=== PATIENT | female | born 1990 | race Asian ===

== ENCOUNTER → 2018-09-21 | Outpatient (CLI) | payer OTHER | LOC: MC.RAD 08:54 | DX: R22.31 Localized swelling, mass and lump, right upper limb (principal) ==

== ENCOUNTER 2020-12-04 09:28 | Outpatient (CLI) | payer OTHER ==
[~2020-12-04] VITALS: Ht 144.8 cm; Wt 52.5 kg
[2020-12-04 10:00] VITALS: BP 119/73; PULSE 68; TEMP 98.5
[2020-12-04] MEDS ORDERED: PROFERRIN ES12 MG PO (10:16)
[2020-12-04] MEDS ORDERED: PRENATAL TABLET PO (10:16)
[2020-12-04] MEDS ORDERED: ZYRTEC 10MG10 MG PO (10:16)
[2020-12-04] MEDS ORDERED: OSCAL 500 TAB500 MG (10:17)
[2020-12-04 10:35] VITALS: BP 112/69; PULSE 67
--- NOTE | 2020-12-04 10:37 | NUR ---
0940 PT AMBULATORY TO LR3 WITH SPOUSE. CLEAN GOWN. FHR/TOCO APPLIED. PT COMES IN FOR COMPLAINTS OF VAGINAL BLEEDING/DECREASED MOVEMENT. PT DENIES ANY REGULAR CONTRACTIONS OR LEAKING OF FLUID. PLAN OF CARE DISCUSSED. SVE PER SHANNON JOHNS 0-1/THICK/HIGH. No blood noted on glove. Pt reports feeling movement and states that vaginal bleeding was spotting/minimal in mucousy discharge. Dr. Zamudio updated. Orders received.
--- NOTE | 2020-12-04 10:49 | NUR ---
1045 PT OFF MONITORS. GIVEN DISCHARGE INSTRUCTIONS. AMBULATORY OFF UNIT WITH SPOUSE
== END 2020-12-04 10:45 | disposition home or self-care (01) ==
LOC: LDRO 09:28
DX: O36.8130 Decreased fetal movements, third trimester, not applicable or unspecified (principal); O26.853 Spotting complicating pregnancy, third trimester; Z3A.35 35 weeks gestation of pregnancy

== ENCOUNTER 2021-01-10 16:34 | Inpatient (IN) | payer OTHER ==
[~2021-01-10] VITALS: Ht 144.8 cm; Wt 56.8 kg
[2021-01-10] VITALS (23 sets, daily range): BP systolic 106–153; BP diastolic 65–91; PULSE 55–86; TEMP 97.2–98.7
[~2021-01-10 16:34] MED LIST: OSCAL 500 TAB500 MG; PRENATAL TABLET PO; PROFERRIN ES12 MG PO; ZYRTEC 10MG10 MG PO
--- NOTE | 2021-01-10 16:40 | NUR ---
1640-G3L0 40.3 GBS neg patient of Dr. Ferrer' Ambulatory to LR 3 with complaint of SROM at 1600. Denies regular contractions but does report off and on contractions "lately." SVE by NAT Parker /3, Amnitest +, clear fluid noted. Assessment complete. 1647-Dr. Ferrer notified. Orders to admit patient. Consents reviewed and signed. IV to left wrist. Blood collected and and sent to lab per orders. Updated on plan of care. 1729-Pitocin started per MD orders. 1809-Reported Off to NAT Feliz.
[2021-01-10 17:03] LABS: BASO % 0.4 % (0.0-2.0); EOS # 0.1 K/mm3 (0.0-0.7); GRAN # 3.1 K/mm3 (1.4-6.5); GRAN % 63.2 % (42.2-75.2); HEMATOCRIT 34.3 % (37.0-47.0); HEMOGLOBIN 11.6 g/dl (12.5-16.0); LYMPH # 1.2 K/mm3 (1.2-3.4); LYMPH % 24.1 % (20.0-51.0); MEAN CELL VOLUME 90 fl (80.0-100.0); MEAN CORPUSCULAR HEMOGLOBIN 30 pg (27.0-31.0); MEAN CORPUSCULAR HGB CONC 34 g/dl (33.0-37.0); MEAN PLATELET VOLUME 12.2 fl (7.4-10.4); MONO # 0.5 K/mm3 (0.1-0.6); MONO % 9.3 % (1.7-9.3); PLATELET COUNT 127 K/mm3 (130-400); RED BLOOD COUNT 3.82 M/mm3 (4.10-5.30); REDCELL DISTRIBUTION WIDTH-CV 13.2 % (11.5-14.5)
[2021-01-11] VITALS (40 sets, daily range): BP systolic 103–160; BP diastolic 59–98; PULSE 55–120; TEMP 97.7–99.4
--- NOTE | 2021-01-11 05:00 | NUR ---
0500- THIS RN TO BEDSIDE FOR SVE CHECK. PATIENT COMPLETE. DISCUSSED PUSHING AND PLAN OF CARE FOR THIS STAGE OF LABOR WITH PATIENT. SHE VERBALIZED UNDERSTANDING. NOTIFIED CHARGE OF STARTING TO PREP FOR PUSHING. SPENCE DUMPED AT THIS TIME. 0513- FIRST PUSH. THIS RN REMAINS AT BEDSIDE DURING THIS TIME AND CONTINUES PUSHING WITH PATIENT. 0530- SPENCE REMOVED. URINE OUTPUT DOCUMENTED. THIS RN REMAINS AT BEDSIDE PUSHING WITH PATIENT. 0610- E.FELTON, RN TO BEDSIDE TO TAKE OVER CARE OF PATIENT. REPORT GIVEN DURING THIS TIME. PATIENT CONTINUES PUSHING WITH THIS RN WHEN CONTRACTIONS HAPPEN. 0615- E. EKART TAKES OVER PUSHING WITH PATIENT. 0620- THIS RN CALLS PROVIDER WITH UPDATES, SEE PHYSICIAN NOTIFICATION.
--- NOTE | 2021-01-11 06:10 | NUR ---
0610-Recieved bedside shift report from NAT Feliz. Patient pusing with good effort with contractioins. Mild amount of vaginal bleeing noted on bed pad with a small trickle during pushing efforts. Encouarged patient. Moves vertex well. Previous nurse to call MD and update that patient has begun pushing since 512. 0630-Patient moving vertex well and vaginal bleeding continuing. Notified MD of exam and requested to unit. 0645-Dr. Ferrer on unit. Set up for delivery. 0650-Patient pushes with MD with good effort.
[2021-01-11 10:12] LABS: BASO % 0.2 % (0.0-2.0); EOS % 0.1 % (0-4.0); GRAN # 11.3 K/mm3 (1.4-6.5); GRAN % 87.1 % (42.2-75.2); HEMOGLOBIN 12.1 g/dl (12.5-16.0); LYMPH # 0.7 K/mm3 (1.2-3.4); LYMPH % 5.4 % (20.0-51.0); MEAN CELL VOLUME 89 fl (80.0-100.0); MEAN CORPUSCULAR HEMOGLOBIN 31 pg (27.0-31.0); MEAN CORPUSCULAR HGB CONC 35 g/dl (33.0-37.0); MEAN PLATELET VOLUME 12.7 fl (7.4-10.4); MONO # 0.9 K/mm3 (0.1-0.6); MONO % 6.7 % (1.7-9.3); PLATELET COUNT 120 K/mm3 (130-400); RED BLOOD COUNT 3.94 M/mm3 (4.10-5.30); REDCELL DISTRIBUTION WIDTH-CV 13.2 % (11.5-14.5)
--- NOTE | 2021-01-11 10:21 | NUR ---
0651- head begins to deliver, MD stops to try to reduce nuchal x2. Unable to reduce so cord was clamped and cut by Dr. Ferrer. Patient continues to push and head easily delivers followed by body. Viable male placed on mothers abdomen and was dried and stimulated. Care of assumed by Syeda Plasencia RN nursery nurse. was pink, NAT Mary took to warmer for further stimulation and care. Apgars 4/6/10. IV was pulled out at some point during delivery, tip intact. Dr. Ferrer ordered for IM methergine to be given at delivery of placenta. 0656-Spontaneous delivery of intact placenta. Lochia WNL and fundal massage firm. Repair of second degree laceration by Dr. Ferrer, IM methergine given at this time to left thigh. At completion of perineal repair fundal massage moderately firm and lochia moderate without clots. Dr. Ferrer gives verbal order for second dose of IM methergine to be given at this time, administered into right thigh. Straight cath of bladder by MD. minimal clear yellow urine emptied. VSS, Patient updated on recovery plan of care and safety.
[2021-01-11 10:29] LABS: ALBUMIN 2.6 gm/dL (3.5-5.0); BILIRUBIN,TOTAL 1.1 mg/dL (0.2-1.2); CALCIUM 8.9 mg/dL (8.4-10.2); CREATININE, serum 0.6 mg/dL (0.57-1.11); POTASSIUM 3.7 mmol/L (3.5-4.5); TOTAL PROTEIN 5.7 gm/dL (6.2-8.1)
[2021-01-12 00:06] VITALS: BP 126/76; PULSE 65; TEMP 98.1
[2021-01-12 03:30] VITALS: BP 116/69; PULSE 64; TEMP 97.7
[2021-01-12 06:30] VITALS: BP 121/68; PULSE 57; TEMP 98.2
--- NOTE | 2021-01-12 06:51 | NUR ---
plastic surgery technician here to draw.
[2021-01-12 07:09] LABS: BASO % 0.3 % (0.0-2.0); EOS # 0.1 K/mm3 (0.0-0.7); EOS % 1.3 % (0-4.0); GRAN # 7.1 K/mm3 (1.4-6.5); GRAN % 75.2 % (42.2-75.2); LYMPH # 1.5 K/mm3 (1.2-3.4); LYMPH % 16.2 % (20.0-51.0); MEAN CELL VOLUME 90 fl (80.0-100.0); MEAN CORPUSCULAR HGB CONC 34 g/dl (33.0-37.0); MEAN PLATELET VOLUME 12.1 fl (7.4-10.4); MONO # 0.6 K/mm3 (0.1-0.6); MONO % 6.3 % (1.7-9.3); PLATELET COUNT 111 K/mm3 (130-400); RED BLOOD COUNT 3.17 M/mm3 (4.10-5.30); REDCELL DISTRIBUTION WIDTH-CV 13.2 % (11.5-14.5)
[2021-01-12 07:11] LABS: HEMATOCRIT 28.5 % (37.0-47.0); HEMOGLOBIN 9.8 g/dl (12.5-16.0); MEAN CORPUSCULAR HEMOGLOBIN 31 pg (27.0-31.0)
[2021-01-12 07:24] LABS: ALBUMIN 2.3 gm/dL (3.5-5.0); BILIRUBIN,TOTAL 0.5 mg/dL (0.2-1.2); CALCIUM 8.8 mg/dL (8.4-10.2); CREATININE, serum 0.61 mg/dL (0.57-1.11); POTASSIUM 4.1 mmol/L (3.5-4.5); TOTAL PROTEIN 5.2 gm/dL (6.2-8.1)
--- NOTE | 2021-01-12 09:40 | NUR ---
Initial visit; Patient thanked [employer] Teacher for offering blessings for the of her son and thanking her for choosing [facility].
[2021-01-12] MEDS ORDERED: IBU600 MG PO (11:17)
--- NOTE | 2021-01-12 15:09 | NUR ---
Watching discharge teaching videos.
[2021-01-12 15:30] VITALS: BP 109/86; PULSE 81; TEMP 98.4
[2021-01-12 19:35] VITALS: BP 118/83; PULSE 84; TEMP 98.5
[2021-01-13 07:30] VITALS: BP 136/84; PULSE 75; TEMP 97.6
== END 2021-01-13 13:30 | disposition home or self-care (01) | DRG 807 ==
LOC: LDRO 16:34 → LDR 17:14 → OB 17:14
PROVIDERS: Obstetrics & Gynecology; ADMIT Obstetrics & Gynecology
PROC: 10E0XZZ Delivery of Products of Conception, External Approach (ICD-10-PCS; principal; 2021-01-11)
PROC: 0KQM0ZZ Repair Perineum Muscle, Open Approach (ICD-10-PCS; 2021-01-11)
DX: O99.02 Anemia complicating childbirth (principal); Z37.0 Single live birth; O69.1XX0 Labor and delivery complicated by cord around neck, with compression, not applicable or unspecified; O70.1 Second degree perineal laceration during delivery; O16.4 Unspecified maternal hypertension, complicating childbirth; Z3A.40 40 weeks gestation of pregnancy
CPT/HCPCS: J2210; J2590; J7120